=== PATIENT | female | born 2000 | race Caucasian/White ===

== ENCOUNTER 2022-07-21 19:38 | Outpatient (REF) | payer OTHER, SELFPAY ==
[2022-07-21 20:49] LABS: IDNOW Serial# 6674DD1D; Strep A Nucleic Acid Negative (Negative)
== END 2022-07-21 19:39 | disposition home or self-care (01) ==
LOC: HO.LAB 19:38
PROVIDERS: Visit Provider Physician Assistant Medical
DX: Z11.2 Encounter for screening for other bacterial diseases (principal)
CPT/HCPCS: 36415; 87651

== ENCOUNTER 2023-01-30 14:02 | Emergency (ER) | payer OTHER, SELFPAY ==
--- NOTE | 2023-01-30 14:09 | ED.GENADULT ---
HPI - General Adult General Chief complaint: Wound/Laceration Stated complaint: l index finger laceration Time Seen by Provider: 01/30/23 15:07 Source: patient Mode of arrival: ambulatory Limitations: no limitations History of Present Illness HPI narrative: 22 yo female with no significant PMHx presents in the ED today with a laceration to her left index finger that occurred while cutting cheese just prior to arrival. Patient states that the area bled for 30 minutes. Has been able to move the finger however limited due to pain. Has not taken anything for the pain. States her last tetanus was 5 years ago or less. Denies fever, chills, numbness tingling or weakness in the extremities. Related Data Allergies Allergy/AdvReac Type Severity Reaction Status Date / Time No Known Allergies Allergy Verified 01/30/23 14:09 Review of Systems Review of Systems: Constitutional: No fever, No chills, No fatigue, No malaise ENT/Mouth: No ear pain, No hearing loss, No nasal congestion, No sinus pain, No rhinorrhea, No sore throat Eyes: No eye pain, No swelling, No redness, No vision changes, No foreign body, No discharge Cardio: No chest pain, No palpitations, No dyspnea on exertion, No orthopnea, No edema Respiratory: No SOB, No cough, No sputum, No wheezing, No dyspnea, No hemoptysis GI: No nausea, No vomiting, No hematemesis, No abdominal pain, No diarrhea, No constipation, No hematochezia, No melena : No irregular bleeding, No dysuria, No frequency, No urgency, No hesitancy, No hematuria, No flank pain, No urinary flow changes, No urinary incontinence or retention MSK: No back pain, No neck pain, No joint pain, No myalgias, + finger pain Skin: No skin lesions, No rashes Neuro: No weakness, No numbness, No paresthesias, No LOC, No dizziness, No headache All other systems reviewed and are negative. [facility] Past Medical History Attestation statement: The following information was validated with the patient. Source: old records reviewed and nursing notes reviewed Medical History Pre-employment health screening examination Social History Social History Advance Directives: No Advance Directives Information Provided: No Physical Exam ED Vital Signs: Vital Signs - 24 hr 01/30/23 14:10 01/30/23 16:00 Temperature 98 F 98.4 F Pulse Rate 75 74 Respiratory Rate 19 16 Blood Pressure 151/71 H 136/86 Pulse Oximetry 98 98 Oxygen Delivery Method Room Air Room Air BMI result Body Mass Index 27.7 Vital signs stable General: Nontoxic appearing. NAD Skin: Warm and dry. 1 cm v-shaped superficial laceration to the radial aspect of the finger pad on the left 2nd digit, actively bleeding with bandage and gauze applied. Nail and nail bed intact. Head: Normocephalic, atraumatic. EENT: PERRLA. EOM intact. Moist mucous membranes. Pharynx normal. Neck: Supple without LAD. Normal ROM. Trachea midline. Cardiac: Chest wall symmetric. RRR. S1 and S1 appreciated. No MRG. No JVD. Lungs: CTA bilaterally. No rales, rhonchi, or wheezes. Normal respiratory effort without accessory muscle use. Ext: Wrist with full ROM intact to extension, flexion, radial & ulnar deviation. Left 2nd digit with full flexion and extension intact to PIP, DIP, MCP before and after suture placement. No obvious deformity. No FB. Capillary refill <2 seconds in all extremities. Pulses 2+ equal b/l. Neuro: AOx3. Normal speech. CN 2-12 grossly intact. Strength 5/5 intact throughout. Sensation intact to light touch. NV intact distally. Psych: Appropriate mood and affect. Responds appropriately to questions. Course Course Course Narrative: This is a rapid medical exam: Additional HPI, ROS, PE not included below will be deferred to primary provider. Patient is a 22-year-old right-hand dominant female presenting to the ED with complaint of laceration to left index finger sustained while slicing cheese. Patient has picture on phone with laceration to radial side of finger. States bled for around 30 mins. Unsure of most recent tetanus, thinks was likely around 5 years ago. Reevaluation(s) Reevaluation #1: 3 sutures and 3 steri-strips applied to the laceration > advised patient to apply bacitracin or neosporin to the wound throughout the day and dress the wound with a bandage to prevent infection. Patient advised to return to the ED or go to for suture removal in 7 days. Educated on return precautions. All questions answered. Patient agreeable with plan. Stable for d/c. Medications Administered Discontinued Medications Generic Name Dose Route Start Last Admin Trade Name Timur PRN Reason Stop Dose Admin Lidocaine HCl 5 ml 01/30/23 15:15 01/30/23 16:14 Lidocaine Hcl 1 % Mpf 5 Ml Vial INFILTRATI 01/30/23 15:16 5 ml ONCE ONE Administration Procedures Laceration Laceration 1: Site: hand (index finger) Side (If applicable): left Size (cm): 1 Description: irregular and clean Depth: simple, single layer Local Anesthetic: lidocaine 1% Amount of anesthesia used (mL): 5 Pre-repair: wound explored, irrigated extensively and deep structures intact Skin layer closed with: nylon Size (cm): 4-0 Number of sutures: 3 Technique: simple, interrupted Nerve Block Nerve Block 1: Time out performed: Yes Local Anesthetic: lidocaine 1% Amount of anesthesia used (mL): 5 Side: left Nerve Blocks: digital Procedure Successful: Yes Patient Tolerated Procedure: well Complications: none Medical Decision Making Medical Decision Making MDM Narrative: 22 yo female with no significant PMHx presents in the ED today with a laceration to her left index finger that occurred while cutting cheese just prior to arrival. VSS, nontoxic appearing, in NAD. 1 cm v-shaped superficial laceration to the radial aspect of the finger pad on the left 2nd digit, actively bleeding with bandage and gauze applied. Nail and nail bed intact. Hemodynamically stable. Sensation and strength intact. NV intact distally. ROM intact. Clinical concern for superficial laceration > plan for sutures, tetanus UTD. Patient declining pain control at this time. Patient with ROM intact > unlikely tendon injury. NV intact distally > low suspicion for NV compromise or threat to limb. Unlikely fracture, bone bruise, nail bed injury, retained FB, cellulitis or osteomyelitis. Differential Diagnosis Differential Diagnoses: The differential diagnosis associated with the presentation includes Clinical concern for superficial laceration > plan for sutures. Patient declining pain control at this time. Patient with ROM intact > unlikely tendon injury. NV intact distally > low suspicion for NV compromise or threat to limb. Unlikely fracture, bone bruise, nail bed injury, retained FB, cellulitis or osteomyelitis. Admission/Observation Not indicated. Independent Historian Clinical information obtained from an independent historian. History obtained from or confirmed by: Parent (father) Tests considered The following testing was considered but not selected: Considered ordering an xray of the affected digit however after exploration of the wound, it did not extend into the musculature, ROM was intact, she was NV intact distally and there was no concern for underlying pathology. Prescription Management I considered prescription management with: Pain Medication Critical Care Time Critical Care Time Critical Care Time: No Discharge Plan Discharge Clinical Impression: Laceration, Suture of skin wound Patient Disposition: Home, Self-Care Instructions: Care For Your Stitches (ED), Stitches Removal (ED) Additional Instructions: You received 3 stitches today in your left index finger. Return to the emergency in 7 days to have the stitches removed. The numbing medication you received today may take couple of hours to wear off. May take Tylenol or ibuprofen as needed pain. Please return to the emergency department if you develop fever, numbness or tingling to the finger. In case of emergency 911. Follow-up with your primary care provider as needed. Referrals: Physician,Unknown J [Primary Care Provider] - Stand Alone Forms: Work/School Release Interventions: ED Discharge Assessment Last Done: 01/30/23 16:42 Discharge Date/Time: 01/30/23 16:44
[2023-01-30 14:10] VITALS: BP 151/71; PULSE 75; RESP 19; TEMP 36.6; O2SAT 98; BMI 27.7
--- OUTSIDE RECORDS SUMMARY | 2023-01-30 15:25 | XMS_ITS | Patient Health Record ---
Author Name Unknown Organization Unknown Care Team Providers Care Case Preparer And Liner Name Role Phone BibColin shipley Primary Care Provider [phone] ALLERGIES No Known Allergies RESULTS Component Value Reference Range Notes Thyroid Panel With [id number] 0 Reviewed date:09/04/2022 09:58:09 AM Interpretation: Performing Lab:[facility], [address] [place] [address], Phone - [phone], Director - Manuel Notes/Report: TSH 1.280 0.450-4.500 uIU/mL Thyroxine (T4) 8.9 4.5-12.0 ug/dL T3 Uptake 27 24-39 % Free Thyroxine Index 2.4 1.2-4.9 Uric Acid-[id number] Reviewed date:09/04/2022 09:58:25 AM Interpretation: Performing Lab:[facility], [address] [place] [address], Phone - [phone], Director - Manuel Notes/Report: Uric Acid 5.6 2.6-6.2 mg/dL Therapeutic ta rget for gout patients: <6.0 Hemoglobin [id number] Reviewed date:09/04/2022 09:57:59 AM Interpretation: Performing Lab:[facility], [address] [place] [address], Phone - [phone], Director - Ikedry Notes/Report: Hemoglobin A1c 5.5 4.8-5.6 % . Prediabetes: 5.7 - 6.4 Diabetes: >6.4 Glycemic control for adults with diabetes: <7.0 Vitamin [id number] Reviewed date:09/04/2022 09:58:06 AM Interpretation: Performing Lab:[facility] [address] [place] [address], Phone - [phone], Director - MDJodry Notes/Report: Vitamin B12 463 665-5237 pg/mL Urinalysis, Complete-[id number] Reviewed date:09/04/2022 09:58:14 AM Interpretation: Performing Lab:[facility], [address] [facility], Phone - [phone], Director - KYJoy Notes/Report: Specific [place] 1.024 1.005-1.030 pH 5.5 5.0-7.5 Urine-Color Yellow Yellow Appearance Clear Clear WBC Esterase Negative Negative Protein Negative Negative/Trace Glucose Negative Negative Ketones Negative Negative Occult Blood Negative Negative Bilirubin Negative Negative Urobilinogen,Semi-Qn 0.2 0.2-1.0 mg/dL Nitrite, Urine Negative Negative Microscopic Examination Micr oscopic follows if indicated. Microscopic Examination See below: Micr oscopic was indicated and was performed. WBC None seen 0 - 5 /hpf RBC 0-2 0 - 2 /hpf Epithelial Cells (non renal) 0-10 0 - 10 /hpf Epithelial Cells (renal) Casts None seen None seen /lpf Cast Type Crystals Crystal Type Mucus Threads Bacteria None seen None seen/Few Yeast Trichomonas Comment CBC With Differential/Platel et-[id number] Reviewed date:09/04/2022 09:58:12 AM Interpretation: Performing Lab:[facility], [address] [facility], [place], Phone - [phone], Director - Alfonsoy Notes/Report: WBC 7.3 3.4-10.8 x10E3/uL RBC 4.72 3.77-5.28 x10E6/uL Hemoglobin 13.9 11.1-15.9 g/dL Hematocrit 41.6 34.0-46.6 % MCV 88 79-97 fL MCH 29.4 26.6-33.0 pg MCHC 33.4 31.5-35.7 g/dL RDW 12.5 11.7-15.4 % Platelets 265 150-450 x10E3/uL Neutrophils 68 Not Estab. % Lymphs 21 Not Estab. % Monocytes 6 Not Estab. % Eos 4 Not Estab. % Basos 1 Not Estab. % Immature Cells Neutrophils (Absolute) 5.0 1.4-7.0 x10E3/uL Lymphs (Absolute) 1.5 0.7-3.1 x10E3/uL Monocytes(Absolute) 0.5 0.1-0.9 x10E3/uL Eos (Absolute) 0.3 0.0-0.4 x10E3/uL Baso (Absolute) 0.1 0.0-0.2 x10E3/uL Immature Granulocytes 0 Not Estab. % Immature Grans (Abs) 0.0 0.0-0.1 x10E3/uL NRBC Hematology Comments: Anti-dsDNA Antibodies-[id number] Reviewed date:09/04/2022 10:36:53 AM Interpretation: Performing Lab:[facility] [place], [address] [place] [address], Phone - [phone], Director - MDJodry Notes/Report: Anti-DNA (DS) Ab Qn <1 0-9 IU/mL Negative <5 Equivocal 5 - 9 Positive >9 Lipid Panel With LDL/HDL Rat [id number] Reviewed date:09/04/2022 09:58:18 AM Interpretation: Performing Lab:[facility] [place], [address] [place] [address], Phone - [phone], Director - MDJodry Notes/Report: Cholesterol, Total 169 100-199 mg/dL Triglycerides 127 0-149 mg/dL HDL Cholesterol 39 >39 mg/dL VLDL Cholesterol Savage 23 5-40 mg/dL LDL Chol Calc (NIH) 107 0-99 mg/dL Comment: LDL/HDL Ratio 2.7 0.0-3.2 ratio LDL/HDL Ratio Men Women 1/2 Avg.Risk 1.0 1.5 Avg.Risk 3.6 3.2 2X Avg.Risk 6.2 5.0 3X Avg.Risk 8.0 6.1 Comp. Metabolic Panel ([id number] Reviewed date:09/04/2022 09:58:02 AM Interpretation: Performing Lab:[facility] [place], [address] [place] [address], Phone - [phone], Director - MDJodry Notes/Report: Glucose 92 70-99 mg/dL BUN 16 6-20 mg/dL Creatinine 0.65 0.57-1.00 mg/dL eGFR 128 >59 mL/min/1.73 BUN/Creatinine Ratio 25 9-23 Sodium 140 134-144 mmol/L Potassium 4.8 3.5-5.2 mmol/L Chloride 103 96-106 mmol/L Carbon Dioxide, Total 22 20-29 mmol/L Calcium 9.7 8.7-10.2 mg/dL Protein, Total 7.3 6.0-8.5 g/dL Albumin 4.7 3.9-5.0 g/dL Globulin, Total 2.6 1.5-4.5 g/dL A/G Ratio 1.8 1.2-2.2 Bilirubin, Total 0.3 0.0-1.2 mg/dL Alkaline Phosphatase 76 44-121 IU/L AST (SGOT) 18 0-40 IU/L ALT (SGPT) 20 0-32 IU/L [id number] Reviewed date:09/04/2022 10:37:00 AM Interpretation: Performing Lab:[facility] [place], [address], [place], Phone - [phone], Director - Manuel Notes/Report: YASMEEN by IFA Rfx Titer/Pattern Negative Negative <1:80 Borderline 1:80 Positive >1:80 ICAP nomenclature: AC-0 For more information about Hep-2 cell patterns use ANApatterns.org, the official website for the International Consensus on Antinuclear Antibody (YASMEEN) Patterns (ICAP). Please Note: YASMEEN Multiplex methodology was designed to detect up to 11 antibodies of the 100+ antibodies that may be detected by YASMEEN IFA methodology. REASON FOR REFERRAL No Information MEDICATIONS Medication SIG (Take, Route, Frequency, Duration) Notes Start Date End Date Status Escitalopram Oxalate 10 MG TAKE 1 TABLET BY MOUTH EVERY DAY for 90 Active Flonase Sensimist 27.5 MCG/SPRAY 1 spray in each nostril Nasally Once a day for 30 days Active Fluticasone Propionate 50 MCG/ACT SPRAY 2 SPRAYS INTO EACH NOSTRIL EVERY DAY Nasal for 84 Days Active Montelukast Sodium 10 MG TAKE 1 TABLET B Y MOUTH EVERY DAY Oral for 90 Days Active IMMUNIZATIONS Vaccine Route Administration Date Status Comme nts FLUARIX QUADRIVALENT Unknown 02/23/2022 Administered PROBLEMS Problem Type ICD Code Onset Dates Problem Status W/U Status Risk SNOMED Code Notes Problem Flat foot [pes planus] (acquired), right foot (M21.41) Active confirmed Pes planus (59962908) Problem Flat foot [pes planus] (acquired), left foot (M21.42) Active confirmed Pes planus (17343967) Problem YASMEEN positive (R76.8) Active confirmed Raised antinuclear antibody (405092465) Problem Hoarseness of voice (R49.0) Active confirmed Voice hoarsene ss (67349335) Problem Marijuana use (F12.90) Problem resolved confirmed Nondependent cannabis abuse (534399594) VITAL SIGNS Heart Rate 80 /min 08/31/2022 Height-cm 160.02 cm 08/31/2022 Oximetry 97 % 08/31/2022 Blood pressure diastolic 65 mm Hg 08/31/2022 Weight-kg 72.57 kg 08/31/2022 Height 63 in 08/31/2022 Blood pressure systolic 112 mm Hg 08/31/2022 Weight 159.99 lbs 08/31/2022 BMI 28.34 kg/m2 08/31/2022 PLAN OF TREATMENT Pending Test Test Name Order Date UA/M w/rflx Culture, Routine-[id number] 08/12 Next Appt Details Provider Name:Colin shipley, 09/05/2023 11:00:00 AM, [address], [address], [place], [address], Insurance Providers Payer Name Payer Address Payer Phone Subscriber Number Group Number Insured Name Patient Relationship to Insured Coverage Start Date Coverage End Date [facility] [address] [place] [phone] [id number] Hannah Crawford Self - patient is the insured MEDICAL (GENERAL) HISTORY Medical History History ICD Code Marijuana use (resolved 08/31/2022)
[2023-01-30 16:00] VITALS: BP 136/86; PULSE 74; RESP 16; TEMP 36.9; O2SAT 98
[2023-01-30] MEDS: Lidocaine HCl 1 % MPF 5 ML VIAL INFILTRATI (16:14)
== END 2023-01-30 16:44 | disposition home or self-care (01) ==
PROVIDERS: Emergency Provider Emergency Medicine
DX: S61.211A Laceration without foreign body of left index finger without damage to nail, initial encounter (principal); W26.0XXA Contact with knife, initial encounter; Y93.9 Activity, unspecified; Y92.9 Unspecified place or not applicable; Y99.9 Unspecified external cause status
CPT/HCPCS: 12041; 99283; 99284